=== PATIENT | female | born 1975 | race Caucasian/White ===

== ENCOUNTER 2021-09-30 17:24 | Emergency (ER) | payer BC ==
[~2021-09-30] VITALS: Ht 172.7 cm; Wt 85.0 kg
[2021-09-30] MEDS ORDERED: IPRATROPIUM BROMIDE (0.02%) 0.5MG/2.5ML NEB HHN STA (18:25)
[2021-09-30] MEDS ORDERED: KETOROLAC 30MG/ML VIAL IV STA (18:25)
[2021-09-30] MEDS ORDERED: SODIUM CHLORIDE 0.9% 1000ML BAG (SEPSIS BOLUS) IV ONE (18:30)
[2021-09-30 19:09] LABS: BASOPHILS % 0.5 % (0.0-2.0); EOSINOPHILS % 2.8 % (0.0-5.0); HEMATOCRIT. 35.6 % (36.0-48.0); MEAN CORPUSCULAR VOLUME 83.2 fL (81.0-99.0); MEAN PLATELET VOLUME 8.3 fl (7.4-10.4); MONOCYTES % 6.7 % (2.0-8.0); PLATELET 314 x1000/uL (130-400); RED BLOOD CELL COUNT 4.28 mill/uL (4.2-5.4); RED CELL DISTRIBUTION WIDTH 14.9 % (11.6-14.6)
[2021-09-30 19:16] LABS: CHLORIDE 110 mEq/L (98-107)
[2021-09-30] MEDS: ALBUTEROL (0.083%) 2.5MG/3ML NEB HHN SCH (19:17)
[2021-09-30] MEDS ORDERED: IOHEXOL-350 100 ML BOTTLE ONE (21:35)
[2021-09-30] MEDS ORDERED: IBUP-2029 MT (23:14)
[2021-09-30 23:30] VITALS: BP 127/69
== END 2021-09-30 23:30 | disposition home or self-care (01) ==
LOC: ER 17:24
DX: R09.1 Pleurisy (principal); R07.9 Chest pain, unspecified; D35.02 Benign neoplasm of left adrenal gland; J45.909 Unspecified asthma, uncomplicated; Z79.899 Other long term (current) drug therapy
CPT/HCPCS: 36415; 71045; 71275; 80053; 81025; 83605; 83880; 84145; 84484; 85025; 85379; 87040; 93005; 94644; 96374; 99285; J1885; Q9967; Z7610; J7030